=== PATIENT | male | born 1955 | race Caucasian/White ===

== ENCOUNTER 2017-01-13 04:05 | Emergency (ER) | payer OTHER ==
[2017-01-13 04:10] VITALS: BP 165/120; PULSE 100; RESP 18; TEMP 98.4; O2SAT 95
[2017-01-13] MEDS ORDERED: OXYCODONE/APAP 5/325 TAB PO ONE (04:16)
--- NOTE | 2017-01-13 04:18 | EDPHY ---
H & P Stated Complaint: Pt injuried his right wrist flying his plane Time Seen by Provider: 01/13/17 04:12 HPI/ROS: Chief Complaint: Right hand injury HPI: 61-year-old male injured his right hand while flying airplane yesterday afternoon. Patient states that he was pulling back on the stick when he felt a pop in his hand. He has had this happen before and was being followed by Dr. Gonzales, hand surgery. He was diagnosed with a sprain in that hand. Pain feels similar to that episode. No numbness or weakness. Has a history of hyperlipidemia, otherwise no medical problems. ROS: 10 point Review of Systems is negative except as noted in the HPI. PMH: Hyperlipidemia Social History: [No] smoking, [no] alcohol, [ no recreational drug use] Family History: [non-contributory] Physical Exam: General: Awake, alert, no acute distress Right hand, he has tenderness and swelling in the anatomic snuffbox. There is no redness. He has decreased range of motion of his thumb secondary to pain. Sensations intact in the radial, median, and ulnar nerve distribution. His capillary refill is less than 2 seconds. Skin: No rash - Personal History Current Tetanus/Diphtheria Vaccine: Yes Current Tetanus Diphtheria and Acellular Pertussis (TDAP): Yes - Medical/Surgical History Hx Asthma: No Hx Chronic Respiratory Disease: No Hx Diabetes: No Hx Cardiac Disease: No Hx Renal Disease: No Hx Cirrhosis: No Hx Alcoholism: No Hx HIV/AIDS: No Hx Splenectomy or Spleen Trauma: No Other PMH: basil cell carcinoma LUE, Bilat knee replacement - Social History Smoking Status: Never smoked Constitutional: Initial Vital Signs Temperature (C) 36.9 C 01/13/17 04:08 Heart Rate 100 01/13/17 04:08 Respiratory Rate 18 01/13/17 04:08 Blood Pressure 165/120 H 01/13/17 04:08 O2 Sat (%) 95 01/13/17 04:08 O2 Delivery Mode Room Air Allergies/Adverse Reactions: No Known Allergies Allergy (Verified 01/13/17 04:10) Home Medications: Medication Instructions Recorded Atorvastatin Calcium [Lipitor] 10 mg PO DAILY 08/19/14 Medical Decision Making - Diagnostics Imaging Results: Right hand x-ray shows significant degenerative changes as compared to an x-ray from 10 years ago. There are no obvious fractures or significant dislocations. ED Course/Re-evaluation: Patient has been placed in a thumb spica splint. He has good support with normal perfusion. Will be discharged with oral analgesia and follow up with his hand surgeon, Dr. Gonzales hopefully later today. - Data Points Medications Given: Discontinued Medications Oxycodone/Acetaminophen (Percocet 5/325) 2 tab PO EDNOW ONE Stop: 01/13/17 04:17 Last Admin: 01/13/17 04:22 Dose: 2 tab Departure - Departure Disposition: Home, Routine, Self-Care Clinical Impression: Hand pain Condition: Good Instructions: Hand Sprain (ED), Oxycodone/Acetaminophen (By mouth) Additional Instructions: You may take Percocet 1-2 every 4-6 hours as needed for pain. Follow up with Dr. Gonzales today. Referrals: Shashank Pearl PA [Primary Care Provider] - As per Instructions Blas Gonzales MD [Medical Doctor] - As per Instructions
[2017-01-13] MEDS ORDERED: OXYCODONE/APAP 5/325MG PREPACK#4 BTL TAKEHOME ONE (04:45)
== END 2017-01-13 05:01 | disposition home or self-care (01) ==
DX: S69.91XA Unspecified injury of right wrist, hand and finger(s), initial encounter (principal); Z85.828 Personal history of other malignant neoplasm of skin; X58.XXXA Exposure to other specified factors, initial encounter; Y99.8 Other external cause status; Y93.89 Activity, other specified